=== PATIENT | male | born 1930 | race Caucasian/White ===

== ENCOUNTER → 2017-01-31 | Outpatient (REF) | payer MEDICARE, BC ==
[2017-02-01 12:18] LABS: BASO # 0.1 K/mm3 (0.0-0.2); BASO % 1.7 % (0.0-1.0); EOS # 0.4 K/mm3 (0.0-0.50); EOS % 5.1 % (0.0-3.0); LARGE UNSTAINED CELL # 0.1 K/mm3 (0.0-0.4); LARGE UNSTAINED CELL % 1.7 % (0.0-4.0); LYMPH # 2.8 K/mm3 (1.5-4.5); LYMPH % 39.2 % (24.0-44.0); MEAN CORPUSCULAR HEMOGLOBIN 31.6 pg (27.0-33.0); MEAN CORPUSCULAR VOLUME 95.8 fl (80.0-96.0); MONO # 0.4 K/mm3 (0.0-0.8); MONO % 5.6 % (0.0-5.0); NEUTROPHILS # 3.4 K/mm3 (1.8-7.7); NEUTROPHILS % 46.9 % (36.0-66.0); WHITE BLOOD COUNT 7.2 K/mm3 (4.0-10.0)
[2017-02-01 12:30] LABS: FREE T4 0.86 NG/DL (0.76-1.46)
[2017-02-01 12:39] LABS: PLATELET COUNT, AUTOMATED 292 k/mm3 (150-450)
== END ==
LOC: M SFHCCLAY 14:20
PROVIDERS: ATTEND Family Medicine
DX: R53.83 Other fatigue (principal); R43.9 Unspecified disturbances of smell and taste; Z79.82 Long term (current) use of aspirin; Z79.899 Other long term (current) drug therapy
CPT/HCPCS: 82728; 84439; 84443; 85025; G0463

== ENCOUNTER → 2017-03-20 | Outpatient (CLI) | payer MEDICARE, BC ==
--- NOTE | 2017-03-20 14:15 | REP ---
Right ankle four views: There are no comparisons. 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 There is no acute fracture or dislocation. The mortise is symmetric. 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 There are metallic densities projected inferior to the calcaneus and cuboid, possibly foreign bodies. There is a small calcaneal plantar spur. Impression: Talonavicular osteoarthritis. Metallic densities, possibly foreign bodies. Calcaneal plantar spur. Signed by Eric Barron MD 03/20/2017 02:07 P
== END ==
LOC: M WUC 13:45
PROVIDERS: ATTEND Physician Assistant
DX: M77.31 Calcaneal spur, right foot (principal); M19.071 Primary osteoarthritis, right ankle and foot

== ENCOUNTER → 2020-04-24 | Outpatient (CLI) | payer MEDICARE, BC ==
--- NOTE | 2020-05-07 20:16 | REP ---
RIGHT FOOT SERIES CLINICAL: Right foot pain. TECHNIQUE: AP, lateral, and bilateral oblique views of the right foot. FINDINGS: Evidence for prior surgery involving the midfoot. Scattered foreign body material is consistent with the given history of shrapnel from a war injury. The osseous structures demonstrate generalized osteopenia and age-related degenerative changes. No overt osteoarthritic degenerative findings. IMPRESSION: Osteopenia and generalized age-related degenerative changes. MTDD
== END ==
LOC: M CLY 13:58
PROVIDERS: ATTEND Family Medicine
DX: M85.871 Other specified disorders of bone density and structure, right ankle and foot (principal); M79.671 Pain in right foot